=== PATIENT | female | born 1990 | race Caucasian/White ===

== ENCOUNTER 2023-06-21 17:58 | Emergency (ER) | payer BC, SELFPAY ==
[2023-06-21 18:06] VITALS: BP 135/86; PULSE 77; RESP 16; TEMP 36.6; O2SAT 100
--- NOTE | 2023-06-21 18:41 | ED.URI ---
HPI - URI/Sore Throat General Chief Complaint: Upper Respiratory Infection Stated Complaint: sinus infection/ear History of Present Illness HPI Narrative: Pt is a 32 y/o female, presents to with 2 week hx of sinus congestion and sinus pressure that seemed to improve for a couple of days but has now returned and she is blowing purulent drainage from her nose. She is having some ear pain and popping as well. She denies associated fever or chills and she has no cough. she is taking otC Mucinex and Alkaseltzer with some relief. she denies chance of . she has no other complaints Related Data Allergies Allergy/AdvReac Type Severity Reaction Status Date / Time No Known Allergies Allergy Verified 06/21/23 18:10 Review of Systems ENT: Comments: refer to HPI Exam Const: General: healthy appearing and no acute distress Nutritional Appearance: well nourished Orientation/consciousness: patient oriented x3 Limitations: no limitations HENMT: Head: normal to inspection Ears: external ears normal and TM abnormal retracted bilateral Face and sinus: sinus tenderness maxillary (left sinus is more tender than right, no swelling noted) Mouth: Yes Normal oral and palatal mucosa present, Yes lip normal and Yes moist mucous membranes Teeth and gingiva: dentition normal Throat: posterior oropharynx normal and uvula midline Eyes: Conjunctivae: conjunctivae normal Pupils: Equal, round and reactive pupils present EOM: EOMs intact bilaterally Neck: Neck: normal visual inspection, no lymphadenopathy and no meningeal signs Resp: Effort & Inspection: normal respiratory effort Auscultation: clear to auscultation bilaterally Cardio: Rate: regular rate Rhythm: regular rhythm Skin: General skin exam: normal color Rashes: no rashes Wounds: no wounds Neuro: General: patient oriented x3, moves all extremities, no meningeal signs, no focal motor deficits and CN's II-XI intact bilaterally Cranial nerves: Yes Nystagmus not present Speech: normal speech Gait exam (Neuro): Normal gait present Extrem: General: normal to inspection Psych: Mental Status: mental status grossly normal Course Course Emergency Course: Plan to treat with suspected IBRS, with Augmentin, she declines Flonase, OTC Zyrtec is also encouraged, FU with PCP in 3 days if symptoms are not improving, OTC probiotic also encouraged. Level of Care: Express Care Visit (43404) Vital Signs Vital signs: Vital Signs Temperature 36.6 C 06/21/23 18:06 Pulse Rate 77 06/21/23 18:06 Respiratory Rate 16 06/21/23 18:06 Blood Pressure 135/86 06/21/23 18:06 Pulse Oximetry 100 06/21/23 18:06 Oxygen Delivery Room Air 06/21/23 18:06 Temperature 36.6 C 06/21/23 18:06 Pulse Rate 77 06/21/23 18:06 Respiratory Rate 16 06/21/23 18:06 Blood Pressure 135/86 06/21/23 18:06 Pulse Oximetry 100 06/21/23 18:06 Oxygen Delivery Room Air 06/21/23 18:06 MDM - URI/Sore Throat MDM Narrative Medical decision making narrative: oral abx, push fluids, OTC zyrtec Differential Diagnosis Differential diagnosis: Likely upper respiratory infection, otitis media, sinusitis and viral infection Discharge Plan Discharge Clinical Impression: Sinusitis Qualifiers: Sinusitis location: maxillary Chronicity: acute Recurrence: non-recurrent Qualified Code(s): J01.00 - Acute maxillary sinusitis, unspecified Patient Disposition: Home, Self-Care Condition: Stable Instructions: Antibiotic Form, Sinusitis (ED) Additional Instructions: COMPLETE ANTIBIOTICS DIRECTED, TAKE WITH PROBIOTIC FOR GI SYMPTOM RELIEF, ADD OVER THE COUNTER ZYRTEC OR CLARITIN DIRECTED. SEE YOUR DOCTOR FOR FOLLOW UP IN 3 DAYS IF SYMPTOMS ARE NOT IMPROVING Prescriptions: New amoxicillin-pot clavulanate 875-125 mg tablet 1 tablet PO Q12H Qty: 20 0RF Follow-up/Referrals: PHYSICIAN,[facility] [Primary Care Provider] - Time of Disposition: 18:47
== END 2023-06-21 18:52 | disposition home or self-care (01) ==
PROVIDERS: Emergency Provider Nurse Practitioner Family
DX: J01.00 Acute maxillary sinusitis, unspecified (principal)
CPT/HCPCS: 99213; G0463

== ENCOUNTER 2023-07-04 17:49 | Emergency (ER) | payer BC, SELFPAY ==
[2023-07-04 18:06] VITALS: BP 122/87; PULSE 86; RESP 16; TEMP 37.1; O2SAT 100
--- NOTE | 2023-07-04 19:20 | ED.GENADULT ---
HPI - General Adult General Chief complaint: Upper Respiratory Infection Stated complaint: Sinus Pressure/Jaw Pain/Headache Source: patient Mode of arrival: ambulatory Limitations: no limitations History of Present Illness HPI narrative: Patient presents for evaluation of sinus symptoms. She was evaluated here on 06/21/2023 for similar symptoms. She was diagnosed with sinusitis was given a prescription for Augmentin. She took the medication as directed and symptoms improved. However upon completion of the 10 day course she had recurrence of symptoms. Reports sinus congestion, pressure in her teeth and in the frontal and bilateral maxillary regions. She denies any sinus drainage. No fever, chills, nausea, vomiting, cough, shortness of breath. She is not taking any [id number] medications to assist with her his symptoms. She does not smoke. Related Data Allergies Allergy/AdvReac Type Severity Reaction Status Date / Time No Known Allergies Allergy Verified 06/21/23 18:10 Review of Systems Review of Systems: CONSTITUTIONAL: Denies fever, chills, or sweats. EYES: Denies visual changes, redness, or discharge. ENT: Reports bilateral maxillary sinus pressure. Reports generalized dental pain. Denies sore throat and otalgia CARDIOVASCULAR: Denies chest pain, palpitations, or edema. RESPIRATORY: Denies cough or dyspnea. GASTROINTESTINAL: Denies abdominal pain, nausea, vomiting, or diarrhea. GENITOURINARY: Denies dysuria or hematuria. SKIN: Denies rash or itching. MUSCULOSKELETAL: Denies back pain, joint pain, or myalgia. NEUROLOGIC: Reports frontal headache. Denies numbness, dizziness, or weakness. PSYCHIATRIC: Denies anxiety or depression. [facility] Past Medical History Medical History No pertinent past medical history Surgical History Surgical History No pertinent past surgical history Family History Family History Mother Family history non-contributory Social History Social History Smoking status: Never smoker Gender identity (if verbalized by the patient): Female Spiritual care concerns: No Exam Narrative: GENERAL: Well-appearing, well-nourished, and in no acute distress. HEAD: Normocephalic, atraumatic. EYES: PERRLA and EOMI. ENT: Nares clear, no rhinorrhea or epistaxis. Mucous membranes moist. Oropharynx without tonsillar hypertrophy exudate or other lesions. Bilateral TMs pearly ragland nonbulging. Frontal and bilateral maxillary sinus tenderness NECK: Supple. No adenopathy or masses. No carotid bruits or JVD CHEST: Clear to auscultation. No respiratory distress. No wheezes rales or rhonchi HEART: Regular rate and rhythm. No murmur heard. Normal peripheral pulses. ABDOMEN: Soft, nontender, nondistended, normal active bowel sounds. EXTREMITIES: Normal range of motion. No edema. SKIN: Warm, dry, no rash. NEURO: No focal deficits. Alert and oriented x3. PSYCH: Normal mood and affect. Course Course Emergency Course: This is a 32-year-old female who presented for evaluation of sinus symptoms the recurrent following Augmentin therapy. Will treat her with doxycycline. Recommended she start Flonase and Sudafed. Also advised on sinus rinses which may help. Increase hydration. Follow up with primary provider. Go to the ER for worsening symptoms. Pt in agreement with plan of care. Level of Care: Express Care Visit Vital Signs Vital signs: Vital Signs Temperature 37.1 C 07/04/23 18:06 Pulse Rate 86 07/04/23 18:06 Respiratory Rate 16 07/04/23 18:06 Blood Pressure 122/87 07/04/23 18:06 Pulse Oximetry 100 07/04/23 18:06 Oxygen Delivery Room Air 07/04/23 18:06 Temperature 37.1 C 07/04/23 18:06 Pulse Rate 86 07/04/23 18:0
== END 2023-07-04 19:17 | disposition home or self-care (01) ==
PROVIDERS: Emergency Provider Nurse Practitioner
DX: J01.41 Acute recurrent pansinusitis (principal)
CPT/HCPCS: 99213; G0463

== ENCOUNTER 2024-05-02 17:45 | Emergency (ER) | payer BC, SELFPAY ==
--- NOTE | 2024-05-02 17:48 | ED.URI ---
HPI - URI/Sore Throat General Stated Complaint: Jaw Pain on Left Side/Ear Pain Time Seen by Provider: 05/02/24 17:59 Source: patient and RN notes reviewed Mode of arrival: ambulatory Limitations: no limitations History of Present Illness HPI Narrative: 33 year old female presents with concern for right ear and jaw pain. She reports that started 2 weeks ago. She reports it has gotten worse. She denies nasal congestion, rhinorrhea, sore throat, fever. She reports she had some dental work on that side recently and has been chewing more on the right side to avoid injury to. She denies any dental pain, swelling. MD elicited complaint: other (ear/jawpain) Related Data Home Medications ?Medication ?Instructions ?Recorded ?Confirmed ?Last Taken ?Type No Home Medications 05/02/24 05/02/24 Unknown History Allergies Allergy/AdvReac Type Severity Reaction Status Date / Time No Known Allergies Allergy Verified 05/02/24 17:50 Review of Systems Review of Systems: CONSTITUTIONAL: Denies malaise, chills, sweats, or fever. EYES: Denies visual changes, redness, or discharge. ENT: Denies rhinorrhea, congestion, sinus pain, and sore throat. Reports left ear pain CARDIOVASCULAR: Denies chest pain, palpitations, or edema. RESPIRATORY: Denies cough. Denies dyspnea. GASTROINTESTINAL: Denies abdominal pain, nausea, vomiting, diarrhea SKIN: Denies rash or itching. MUSCULOSKELETAL: Denies myalgia. Reports left jaw pain NEUROLOGIC: Denies headache. All systems reviewed & are unremarkable except as noted in HPI and below PMFSH Past Medical History Medical History No pertinent past medical history Surgical History Surgical History No pertinent past surgical history Family History Family History Mother Family history non-contributory Social History Social History Smoking status: Never smoker Gender identity (if verbalized by the patient): Female Spiritual care concerns: No Comments At time of signature, agree with nursing past medical, surgical, social and family history. There is no relevant family history pertinent to the presenting complaint Exam Narrative: GENERAL: Well-appearing, well-nourished, and in no acute distress. HEAD: Normocephalic EYES: PERRLA, conjunctivae clear ENT: Nares clear. Mucous membranes moist. TM pearly ragland with sharp light reflex bilaterally; no tragal tenderness. Oropharynx not erythematous without lesions. Tonsils not enlarged and without exudate, no drooling, no hoarseness, no trismus, uvula midline. Left TMJ tenderness, jaw popping NECK: Supple. No lymphadenopathy CHEST: Clear to auscultation, breath sounds equal. No wheezing, rhonchi, rales, or stridor. No respiratory distress, speaks in full sentences. HEART: Regular rate and rhythm. No murmur heard. SKIN: Warm, dry, no rash. NEURO: Alert and oriented x3. PSYCH: Normal mood and affect Course Course Emergency Course: Patient is aware of diagnosis, understands and agrees to treatment plan. Anticipatory guidance given. Patient agrees to follow-up as directed and is aware of reasons to seek care at the emergency department. Portions of this record may have been created with voice recognition software Level of Care: Express Care Visit Vital Signs Vital signs: Reviewed. MDM - URI/Sore Throat MDM Narrative Medical decision making narrative: Differential diagnosis considered: TMJ, Le virus, strep pharyngitis, allergic rhinitis, upper respiratory tract infection, sinusitis, rhinosinusitis, nasopharyngitis. viral pharyngitis, otitis media, otitis externa, pneumonia, bronchitis, viral cough syndrome, viral syndrome, and influenza. Exam findings show no acute concerns or changes; patient is non-toxic appearing and is in no distress. Patient is appropriate for outpatient treatment and follow-up. Lab Data Attestation: I reviewed the patient's lab results. Critical Care Time Critical Care Time Critical Care Time: No Discharge Plan Discharge Clinical Impression: TMJ inflammation Patient Disposition: Home, Self-Care Condition: Stable Instructions: Antibiotic Form, Temporomandibular Disorder (ED) Additional Instructions: -Apply moist heat to affected side first thing in the morning and before meals for 5-10 minutes. -After applying heat massage the painful area for 2-3 minutes -After massage. apply ice or cool compress for 5-10 minutes. Avoid chewy foods. chewing gum, chewing ice, yawning, and chewing non-food items. Take small bites Take Ibuprofen 800mg regularly for 3-4 days, then as needed for pain. You may also alternate ibuprofen with Tylenol. Follow-up with your dentist or PCP for further evaluation. If you have any urgent concerns, please go to the ER. Patient Language: Vietnamese Prescriptions: No Action doxycycline hyclate 100 mg tablet 100 mg PO BID Qty: 20 0RF Follow-up/Referrals: PHYSICIAN,SENIOR TECHNICAL RECRUITER [Primary Care Provider] - Time of Disposition: 18:08
[2024-05-02 17:51] VITALS: BP 137/65; PULSE 83; RESP 16; TEMP 37.2; O2SAT 100
== END 2024-05-02 18:13 | disposition home or self-care (01) ==
PROVIDERS: Emergency Provider Nurse Practitioner
DX: M26.601 Right temporomandibular joint disorder, unspecified (principal)
CPT/HCPCS: 99211; G0463